=== PATIENT | female | born 1955 | race Caucasian/White ===

== ENCOUNTER → 2017-06-30 | Day surgery (SDC) | payer OTHER ==
[~2017-06-30] VITALS: Ht 152.4 cm; Wt 45.8 kg
[~2017-06-30] MED LIST: CALC-243 PO; CHOL10008 PO; FLAX100038 PO; HYDR12.55 PO; LISI1TAB7 PO; MULT-1018 PO; Sodium Chloride LOK Flush 10 mL Syringe IV PRN; fentaNYL-PF 50 mCg/mL 2 mL Inj IVPUSH PRN
[2017-06-30 13:51] VITALS: BP 132/77; PULSE 68; RESP 16; O2SAT 97
[2017-06-30] MEDS: 0.9% Sodium Chloride 1,000 ML IV SCH ×3 (13:59→14:30)
[2017-06-30 14:36] VITALS: BP 92/48; PULSE 59; RESP 16; O2SAT 97
[2017-06-30 14:46] VITALS: BP 84/48; PULSE 58; RESP 16; O2SAT 98
--- NOTE | 2017-06-30 14:53 | ENDO ---
[address] [address] ENDOSCOPY PROCEDURE PATIENT: EM BENJAMIN : 1955 MR#: [id number] ADMIT: 06/30/2017 JOB ID: [id number] DATE OF SERVICE: 06/30/2017 TYPE OF OPERATION: Colonoscopy with biopsy. PREOPERATIVE DIAGNOSIS(ES): Diarrhea. POSTOPERATIVE DIAGNOSIS(ES): Normal colonoscopy, status post biopsy. ANESTHESIA: Fentanyl 100 mcg, Versed at 6 mg IV administered. COMPLICATIONS: None. BLOOD LOSS: Minimal. DESCRIPTION OF PROCEDURE: After risks and benefits explained to the patient, informed consent was obtained. After anesthesia administered, colonoscope was then inserted from the rectum to the terminal ileum and mucosa carefully examined. Prep of the patient was excellent. After procedure was done, the scope withdrawn and procedure terminated. FINDINGS: Upon inspection of the anus, there were no masses, ulcers, or fissures that were seen. Throughout the entire examination, no polyps, masses, or lesions. Biopsies taken from terminal ileum and random colon. Retroflexion normal. IMPRESSIONS: Normal colonoscopy, status post biopsy. RECOMMENDATION: Await pathology results. Follow up in GI clinic as needed.
[2017-06-30 14:56] VITALS: BP 83/49; PULSE 62; RESP 16; O2SAT 98
[2017-06-30 15:12] VITALS: BP 100/57; PULSE 57; RESP 16; O2SAT 100
--- NOTE | 2017-07-03 16:07 | PATH ---
SURGICAL PATHOLOGY Attending Physician:Teddy Edwards MD CASE STATUS: Signed Out PATIENT NAME: EM BENJAMIN PID: [id number] : 1955 DATE COLLECTED:06/30/2017 00:00 SPECIMEN: 1: Ileum, Biopsy 2: Colon, Biopsy CLINICAL HISTORY: 1). TERMINAL ILEUM BIOPSY 2). RANDOM COLON BIOPSY FINAL DIAGNOSIS: 1. Terminal Ileum, Biopsy: Small bowel mucosa with no diagnostic abnormality. Negative for active inflammation, dysplasia and malignancy. 2. Random Colon, Biopsies: Colonic mucosa with mildly increased intraepithelial lymphocytosis. See comment. Negative for granulomatous dysplasia and malignancy. ICD10: K52.89 NOTE: The random colon biopsies show a mild increase in intraepithelial lymphocytosis and increased plasma cells and lymphocytes in the lamina propria without crypt architectural distortion. The differential diagnosis includes lymphocytic colitis, medication-related mucosal injury, infection, and diverticular disease-associated colitis. GROSS DESCRIPTION: The specimen is received in two formalin filled containers labeled with the patient's name. 1). The specimen is labeled "terminal ileum" and consists of 2 portions of tissue which aggregate to 0.3 x 0.2 x 0.2 CM. The specimen is entirely submitted in cassette 1A. 2). The specimen is labeled "random colon" and consists of 3 portions of tissue which aggregate to 0.4 x 0.3 x 0.2 CM. The specimen is entirely submitted in cassette 2A. 07/01/2017[place] ICD-9 CODES: CPT CODES: 1: 37225 2: 09981 Electronically Signed Out Fatemeh Be MD [facility] Pathology [facility] [address], [place] [address] Technical component performed at [facility], [facility] [address], [address]
== END | disposition home or self-care (01) ==
LOC: END 01:33
PROVIDERS: ATTEND Internal Medicine Gastroenterology
DX: K52.89 Other specified noninfective gastroenteritis and colitis (principal); I10 Essential (primary) hypertension; Z87.891 Personal history of nicotine dependence
CPT/HCPCS: 45380; G0500; J2250; J3010; J7030